=== PATIENT | female | born 1950 | race Caucasian/White ===

== ENCOUNTER → 2020-09-29 15:14 | Outpatient (BNVA) | payer MEDICARE, SELFPAY | PROVIDERS: PCP Family Medicine; Visit Provider Internal Medicine | DX: E03.9 Hypothyroidism, unspecified (principal); E83.52 Hypercalcemia; G47.33 Obstructive sleep apnea (adult) (pediatric); G62.9 Polyneuropathy, unspecified | CPT/HCPCS: 99204 ==

== ENCOUNTER → 2020-10-21 09:00 | Outpatient (BNVA) | payer MEDICARE, SELFPAY | PROVIDERS: PCP Family Medicine; Visit Provider Internal Medicine | DX: E03.9 Hypothyroidism, unspecified (principal); E83.52 Hypercalcemia; G62.9 Polyneuropathy, unspecified | CPT/HCPCS: 82310; 83036; 83970; 84439; 84443 ==

== ENCOUNTER → 2021-07-18 16:09 | Outpatient (BNVA) | payer MEDICARE, SELFPAY | PROVIDERS: PCP Family Medicine; Visit Provider Obstetrics & Gynecology | DX: N95.0 Postmenopausal bleeding (principal) | CPT/HCPCS: 88305; 88341; 88342; 88360 ==

== ENCOUNTER → 2021-07-19 11:25 | Outpatient (BNVA) | payer MEDICARE, SELFPAY | PROVIDERS: PCP Family Medicine; Visit Provider Obstetrics & Gynecology | DX: N95.0 Postmenopausal bleeding (principal); N85.2 Hypertrophy of uterus | CPT/HCPCS: 76830; 76857 ==

== ENCOUNTER 2021-10-05 06:00 | Outpatient (RCR) | payer MEDICARE, SELFPAY | END 2021-10-24 23:59 | disposition home or self-care (01) | LOC: GPT 06:00 | PROVIDERS: PCP Family Medicine; Referring Provider Family Medicine; Visit Provider Family Medicine | DX: R26.81 Unsteadiness on feet (principal) | CPT/HCPCS: 97110; 97112; 97162; 97530 ==

== ENCOUNTER 2022-07-07 12:07 | Outpatient (CLI) | payer MEDICARE, SELFPAY ==
--- NOTE | 2022-07-07 12:17 | MM_ITS ---
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 Findings: The breast parenchymal pattern shows fibroglandular tissue. No spiculated masses or clustered calcifi cations are seen. There are no secondary signs of carcinoma. Mole markers are on both breasts. MM/[place] [id number] Impression: 1. Negative bilateral mammogram with no prior exam for review.. 2. Recommend annual screening mammograms. BIRADS: 1-Negative FOLLOW UP: 1 Year Follow-up The CAD template checker was used.
== END 2022-07-07 12:08 | disposition home or self-care (01) ==
PROVIDERS: PCP Family Medicine; Visit Provider Obstetrics & Gynecology
DX: Z12.31 Encounter for screening mammogram for malignant neoplasm of breast (principal); C54.1 Malignant neoplasm of endometrium
CPT/HCPCS: 77063; 77067

== ENCOUNTER 2022-10-24 06:00 | Outpatient (RCR) | payer MEDICARE, SELFPAY | END 2022-10-27 23:59 | disposition home or self-care (01) | LOC: GPT 06:00 | PROVIDERS: PCP Family Medicine; Visit Provider Student in an Organized Health Care Education/Training Program | DX: M17.11 Unilateral primary osteoarthritis, right knee (principal) | CPT/HCPCS: 97110; 97140; 97161; 97535 ==

== ENCOUNTER 2022-12-13 13:48 | Outpatient (CLI) | payer MEDICARE, SELFPAY ==
--- NOTE | 2022-12-13 14:07 | CT_ITS ---
WS: [id number] CT CHEST, ABDOMEN AND PELVIS WITH AND WITHOUT CONTRAST. HISTORY: MALIGNANT NEOPLASM OF BODY OF UTERUS TECHNIQUE: Noncontrast imaging first performed through the abdomen and pelvis. Contiguous 5 mm axial imaging performed through the chest, abdomen and pelvis with IV contrast, oral contrast has been prov ided. Coronal and sagittal reformats chest. Coronal and sagittal reformats through the abdomen and pe lvis. All CT scans at [facility] use at least one of these dose optimization techniques: auto mated exposure control; mA and/or kV adjustment per patient size (includes targeted exams where dose is matched to clinical indication); or iterative reconstruction. CONTRAST: Omnipaque 350; 100 mL IV. DLP: 1827.82 mGy.cm COMPARISON: None available. Chest CT: Lungs are well-aerated. Noncalcified 3 mm nodule LEFT upper lobe. Noncalcified 4.6 mm nodul e LEFT lower lobe. No mass. No endobronchial lesions. No pneumonia. Right-sided central line with tip in distal SVC. No mediastinal or hilar adenopathy. No axillary lymph nodes. Mild atherosclerosis aor ta. Normal size heart. Small hiatal hernia. Abdomen CT: Normal liver, spleen, gallbladder, pancreas, adrenal glands and kidneys. No renal obstruc tion. Mild atherosclerosis aorta. Mesenteric arteries are normally enhancing. There is a small amount of plaque at the origin of celiac axis and SMA. Normal appearance of the stomach and small bowel. Prior appendectomy. There are numerous scattered di verticula throughout the descending and sigmoid colon. No acute diverticulitis. No ascites or adenopathy. No mesenteric implants are identified. Pelvic CT: Normally distended urinary bladder. Prior hysterectomy. No free fluid or lymph nodes in th e pelvis. L5 grade 2 anterolisthesis. L5 anterolisthesis by 12.6 cm. Bilateral pars defects at L5. No osteoblas tic or osteolytic bone disease is identified. CT/CT ch abdpel wo/w [id number] IMPRESSION: 1. Patient is status post hysterectomy and appendectomy. 2. Noncalcified LEFT pulmonary nodules, 3 mm LEFT upper lobe and 4.6 mm LEFT l ower lobe. Differential includes postinflammatory benign nodules versus early m etastatic nodules. Recommend follow-up chest CT in [address] fo llow-up will be necessary to document stability. 3. No ascites or metastatic lymphadenopathy within the chest, abdomen or pelvi s. 4. Grade 2 L5 spondylolisthesis, bilateral L5 pars defects. 5. Distal colon moderate diverticulosis without acute diverticulitis.
[2022-12-13] MEDS: iohexol 350 mg/mL 500 mL Btl (per mL) PO (15:50)
[2022-12-13 15:57] LABS: Blood Urea Nitrogen 14 mg/dL (8-23)
[2022-12-13] MEDS: iohexol 350 mg/mL 500 mL Btl (per mL) IV (16:08)
== END 2022-12-13 13:49 | disposition home or self-care (01) ==
PROVIDERS: Radiology Diagnostic Radiology; PCP Family Medicine
DX: C55 Malignant neoplasm of uterus, part unspecified (principal); Z90.710 Acquired absence of both cervix and uterus; R91.8 Other nonspecific abnormal finding of lung field; M43.16 Spondylolisthesis, lumbar region; K57.30 Diverticulosis of large intestine without perforation or abscess without bleeding
CPT/HCPCS: 71260; 74178; 82565; 84520; Q9967

== ENCOUNTER 2023-02-15 06:00 | Outpatient (RCR) | payer MEDICARE, SELFPAY | END 2023-02-26 23:59 | disposition home or self-care (01) | LOC: GPT 06:00 | PROVIDERS: Visit Provider Student in an Organized Health Care Education/Training Program | DX: Z47.1 Aftercare following joint replacement surgery (principal); Z96.652 Presence of left artificial knee joint | CPT/HCPCS: 97161 ==

== ENCOUNTER → 2023-04-09 16:36 | Outpatient (BNVA) | payer MEDICARE, SELFPAY | PROVIDERS: Visit Provider Nurse Practitioner Women's Health | DX: Z12.4 Encounter for screening for malignant neoplasm of cervix (principal) | CPT/HCPCS: 87624 ==

== ENCOUNTER 2023-04-26 09:31 | Outpatient (CLI) | payer MEDICARE, SELFPAY ==
--- NOTE | 2023-04-26 09:39 | CT_ITS ---
WS: [id number] CT CHEST, ABDOMEN AND PELVIS WITH AND WITHOUT CONTRAST. HISTORY: UTERINE/CERVICAL CANCER/MONITOR ENDOMETRIAL CANCER TECHNIQUE: Contiguous 5 mm axial imaging performed through the chest, abdomen and pelvis with and wit hout IV contrast, oral contrast has been provided. Coronal and sagittal reformats chest. Coronal and sagittal reformats through the abdomen and pelvis. All CT scans at [facility] use at least on e of these dose optimization techniques: automated exposure control; mA and/or kV adjustment per kathrin ent size (includes targeted exams where dose is matched to clinical indication); or iterative reconst ruction. CONTRAST: Omnipaque 350; 100 mL IV. DLP: 2397.60 mGy.cm COMPARISON: 12/13/[address]: No new or enlarging pulmonary nodules. Reidentified is 3 mm nodule in the LEFT upper lobe. The previously described LEFT lower lobe nodule is not identified. No mass or pneumonia. No pleural e ffusions. Mild atherosclerosis aorta. Normal sized pulmonary artery. No mediastinal or hilar adenopat hy. Normal size heart. Small hiatal hernia. Abdomen CT: Hepatic steatosis. Normal portal vein. No metastatic lesions within the liver. Normal gal lbladder. Normal pancreas and spleen. Normal adrenal glands. No renal obstruction. Mild atheroscleros is aorta. No ascites or adenopathy. Nondistended stomach contains a small amount of oral contrast. No GI tract obstruction. Numerous dive rticula in the descending and sigmoid colon. No evidence for acute diverticulitis. Pelvic CT: No free fluid. Negative urinary bladder. No pelvic adenopathy. L5 anterolisthesis by 14 mm. No osteoblastic or osteolytic bone disease. IMPRESSION: 1. No lymphadenopathy within the chest, abdomen or pelvis. 2. Previously described LEFT lower lobe pulmonary nodule is no longer present. Stable 3 mm nodule in the LEFT upper lobe. No new pulmonary nodule or mass. 3. No ascites or omental carcinomatosis. 4. Grade 2 anterolisthesis of L5. 5. Prior hysterectomy and appendectomy.
[2023-04-26] MEDS: iohexol 350 mg/mL 500 mL Btl (per mL) PO (10:04)
[2023-04-26] MEDS: iohexol 350 mg/mL 500 mL Btl (per mL) IV (10:04)
[2023-04-26 10:09] LABS: Basophils % 0.4 %; Eosinophils # 0.1 10^3/uL (0.0-0.8); Eosinophils % 2.2 %; Hematocrit 37.9 % (36-47); Lymphocytes # 1.4 10^3/uL (0.8-4.8); Lymphocytes % 30.8 %; Mean Corpuscular HGB Conc 32.7 g/dL (30-55); Mean Corpuscular Volume 97.9 fl (85-98); Mean Platelet Volume 9.6 fL (7.4-10.4); Monocytes # 0.4 10^3/uL (0.2-0.9); Monocytes % 9.5 %; Neutrophils # 2.64 10^3/uL (1.8-7.7); Neutrophils % 56.9 %; Nucleated Red Blood Cells % 0 %; Platelet Count 248 10^3/cmm (157-399); Red Blood Count 3.87 10^6/uL (3.85-5.65); Red Cell Distribution Width 13.9 % (12.1-15.1); White Blood Count 4.64 10^3/uL (3.29-11.43)
[2023-04-26 11:18] LABS: Blood Urea Nitrogen 17 mg/dL (8-23)
== END 2023-04-26 09:32 | disposition home or self-care (01) ==
PROVIDERS: PCP Family Medicine; Visit Provider Physician Assistant Medical
DX: C54.9 Malignant neoplasm of corpus uteri, unspecified (principal); C54.1 Malignant neoplasm of endometrium; Z90.710 Acquired absence of both cervix and uterus; Z90.49 Acquired absence of other specified parts of digestive tract
CPT/HCPCS: 36415; 71260; 74178; 82565; 84520; 85025; Q9967

== ENCOUNTER 2023-07-18 11:45 | Outpatient (CLI) | payer MEDICARE, SELFPAY ==
--- NOTE | 2023-07-18 | MM_ITS ---
WS: [id number] BILATERAL 3D TOMOSYNTHESIS DIGITAL SCREENING MAMMOGRAPHY WITH CAD CLINICAL INFORMATION: SCR HISTORY: Screening mammogram. No current complaints. COMPARISON: 2021 TECHNIQUE: Bilateral CC and MLO views. FINDINGS: Scattered fibroglandular densities bilaterally. No suspicious focal mass, asymmetry, calcifications, or architectural distortion. No evidence of malignancy. A few incidental tiny punctate calcifications . IMPRESSION: MM/[place] [id number] BI-RADS: 2-Benign FOLLOW UP: 1 Year Follow-up Recommend return to annual screening mammography.
== END 2023-07-18 11:46 | disposition home or self-care (01) ==
LOC: RAD 11:46
PROVIDERS: PCP Family Medicine; Visit Provider Family Medicine
DX: Z12.31 Encounter for screening mammogram for malignant neoplasm of breast (principal)
CPT/HCPCS: 77063; 77067

== ENCOUNTER 2024-01-01 09:15 | Outpatient (CLI) | payer MEDICARE, SELFPAY ==
--- NOTE | 2024-01-01 09:30 | MM_ITS ---
WS: [id number] DIAGNOSTIC BILATERAL DIGITAL BREAST TOMOSYNTHESIS MAMMOGRAPHY WITH CAD Bilateral breast ultrasound, limited HISTORY: N64.4 - Mastodynia, bilateral palpable areas. COMPARISON: 07/18/2023, 07/07/2022 TECHNIQUE: Bilateral craniocaudad, mediolateral oblique, and mediolateral views are submitted with to mosynthesis and SM. Spot compression RIGHT CC and MLO. Computer aided detection utilized. Breast composition: There are scattered areas of fibroglandular density. No suspicious masses or calc ifications. There is a small lymph node measuring 5 mm in the upper outer quadrant of the LEFT breast closely associated with the palpable marker. No mass associated with the palpable marker in the medi al RIGHT breast. Bilateral breast ultrasound, limited. There is a benign appearing lymph node associated with the palpable abnormality in the LEFT breast. N o abnormality associated with the palpable site in the RIGHT breast. MM/[place] [id number] IMPRESSION: BI-RADS: 2-Benign FOLLOW UP: 1 Year Follow-up
--- NOTE | 2024-01-01 10:00 | US_ITS ---
WS: [id number] DIAGNOSTIC BILATERAL DIGITAL BREAST TOMOSYNTHESIS MAMMOGRAPHY WITH CAD Bilateral breast ultrasound, limited HISTORY: N64.4 - Mastodynia, bilateral palpable areas. COMPARISON: 07/18/2023, 07/07/2022 TECHNIQUE: Bilateral craniocaudad, mediolateral oblique, and mediolateral views are submitted with to mosynthesis and SM. Spot compression RIGHT CC and MLO. Computer aided detection utilized. Breast composition: There are scattered areas of fibroglandular density. No suspicious masses or calc ifications. There is a small lymph node measuring 5 mm in the upper outer quadrant of the LEFT breast closely associated with the palpable marker. No mass associated with the palpable marker in the medi al RIGHT breast. Bilateral breast ultrasound, limited. There is a benign appearing lymph node associated with the palpable abnormality in the LEFT breast. N o abnormality associated with the palpable site in the RIGHT breast. US/US breast BI limited* [id number] IMPRESSION: BI-RADS: 2-Benign FOLLOW UP: 1 Year Follow-up
== END 2024-01-01 09:16 | disposition home or self-care (01) ==
LOC: RAD 09:16
PROVIDERS: PCP Family Medicine; Visit Provider Nurse Practitioner Women's Health
DX: N64.4 Mastodynia (principal); Z12.31 Encounter for screening mammogram for malignant neoplasm of breast; R92.323 Mammographic fibroglandular density, bilateral breasts; N63.21 Unspecified lump in the left breast, upper outer quadrant
CPT/HCPCS: 76642; 77062; G0279

== ENCOUNTER → 2024-03-18 16:36 | Outpatient (BNVA) | payer MEDICARE, SELFPAY | PROVIDERS: PCP Family Medicine; Visit Provider Nurse Practitioner Family | DX: R50.9 Fever, unspecified (principal); R11.2 Nausea with vomiting, unspecified | CPT/HCPCS: 87071; 87400; 87426; 87880 ==

== ENCOUNTER → 2024-04-04 09:00 | Outpatient (BNVA) | payer MEDICARE, SELFPAY | PROVIDERS: PCP Family Medicine; Visit Provider Nurse Practitioner Family | DX: Z91.018 Allergy to other foods (principal); E03.9 Hypothyroidism, unspecified; R42 Dizziness and giddiness; R53.83 Other fatigue | CPT/HCPCS: 80053; 84443; 85025; 86003; 86008 ==

== ENCOUNTER → 2024-07-03 14:46 | Outpatient (BNVA) | payer MEDICARE, SELFPAY | PROVIDERS: PCP Family Medicine; Visit Provider Internal Medicine Cardiovascular Disease | DX: I45.10 Unspecified right bundle-branch block (principal); R94.31 Abnormal electrocardiogram [ECG] [EKG]; E03.9 Hypothyroidism, unspecified; Z86.73 Personal history of transient ischemic attack (TIA), and cerebral infarction without residual deficits | CPT/HCPCS: 99204 ==

== ENCOUNTER 2024-08-04 07:25 | Outpatient (CLI) | payer MEDICARE, SELFPAY ==
--- NOTE | 2024-08-04 | ECG_ITS ---
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 Interpretive Statements Lung unchanged pre/post procedure; Intraprocedure shortess of breath; Symptoms resoled by discharge PROCEDURE: At the baseline, the EKG revealed sinus rhythm with a right bundle branch block pattern. The baseline heart was 70 bpm with a blood pressue of 169/90 mm of Hg Lexiscan was infused over a period of 20 seconds. A total of 0.4 milligrams of Lexiscan was infused. The stress phase was continued for a total of 5 minutes. Heart rate at the end of the stress phase was 87 bpm with a blood pressure 160/90 mm of Hg. The EKG at the peak infusion revealed no significant changes. There were occasional PVCs on the monitor with the infusion. Sestamibi was injected 20 seconds after the Lexiscan infusion. Heart rate at the end of the recovery phase was 84 bpm with a blood pressure of 161/85 mm of Hg. CONCLUSION: 1. No significant EKG changes with the LexiScan infusion 2. No LexiScan induced chest pain or cardiac arrhythmia 3. Normal blood pressure and heart rate response 4. Sestamibi/sestamibi perfusion scan pending; see separate report. Electronically Signed On 08-04-2024 17:59:49 [employer] RESEARCHER by Landon Resendiz M.D. [email or web address]
[2024-08-04 07:29] VITALS: BMI 40.6
--- NOTE | 2024-08-04 07:35 | NMCV_ITS ---
NM mu perf SPECT r/s* [id number] Eda Valdez Age: 74 Gender: F : 1950 Exam Date: 08/04/2024 08:45 Ordering Phys: Landon Resendiz MD ([email or web address]) Technologist: CLYDE Silva Exam Location: [facility] Indications: cp STRESS TEST [facility] IMAGE PROTOCOL Rest/Stress 1 Lexiscan Day Radiopharmaceutical Dose (mCi) Administration Site Administered by Rest: Tc-99m 10.6 IV CLYDE Silva Sestamibi Stress:Tc-99m 32.9 IV CLYDE Phan Sestamibi Rest: 04-Aug-2024 60 Discovery 630 Stress: 04-Aug-2024 30 Discovery 630 0.4mg Lexiscan. Images obtained in supine and prone position. SPECT RESULTS Technical Quality: Good Raw Data Analysis: Normal Image Corrections: No attenuation or motion correction applied Summed Stress Score: 6 Summed Rest Score: 7 Summed Difference Score: 0 PERFUSION FINDINGS Moderate area of minimal to moderately decreased tracer uptake was noted involving the mid inferolateral, apical lateral, mid anterolateral and apical anterior regions. No significant reversibility was noted in these regions. FUNCTIONAL RESULTS (calculated via Gated SPECT) Stress Image LV EF (%): 74 Stress EDV (mL):105 TID: 1.02 Stress ESV (mL):27 FUNCTIONAL FINDINGS: Segmental wall motion analysis revealing no gross wall motion abnormalities IMPRESSIONS 1. Myocardial perfusion imaging revealing moderate area of minimal to moderately decreased persistent tracer uptake involving the inferolateral, anterolateral and apical regions suggesting myocardial scarring versus attenuation artifact. 2. Normal LV ejection fraction of 74%. 3. LV wall motion analysis revealing no gross wall motion abnormalities. 4. Normal LV volume Low probability for coronary ischemia, based on the above findings Dr Landon Resendiz MD FAC (Electronically Signed) Final Date: 05 August 2024 20:29 S
[2024-08-04] MEDS: regadenoson 0.4 Mg/5 ml Syringe IVP (09:16)
[2024-08-04 09:43] VITALS: BP 160/89; PULSE 86
== END 2024-08-04 07:26 | disposition home or self-care (01) ==
PROVIDERS: PCP Family Medicine; Visit Provider Internal Medicine Cardiovascular Disease
DX: R07.9 Chest pain, unspecified (principal); R93.1 Abnormal findings on diagnostic imaging of heart and coronary circulation
CPT/HCPCS: 36415; 78452; 93017; 96374; A9500; J2785

== ENCOUNTER → 2024-10-21 08:32 | Outpatient (BNVA) | payer MEDICARE, SELFPAY | PROVIDERS: PCP Nurse Practitioner Family; Visit Provider Nurse Practitioner Family | DX: I45.10 Unspecified right bundle-branch block (principal); R94.31 Abnormal electrocardiogram [ECG] [EKG]; E03.9 Hypothyroidism, unspecified; Z86.73 Personal history of transient ischemic attack (TIA), and cerebral infarction without residual deficits | CPT/HCPCS: 99213 ==

== ENCOUNTER → 2025-02-10 09:24 | Outpatient (BNVA) | payer MEDICARE, SELFPAY | PROVIDERS: PCP Nurse Practitioner Family; Visit Provider Family Medicine | DX: E03.9 Hypothyroidism, unspecified (principal); Z91.018 Allergy to other foods; G62.9 Polyneuropathy, unspecified; R53.83 Other fatigue | CPT/HCPCS: 80053; 80061; 84439; 84443; 85025 ==

== ENCOUNTER → 2025-03-05 09:47 | Outpatient (BNVA) | payer MEDICARE, SELFPAY | PROVIDERS: PCP Nurse Practitioner Family; Visit Provider Podiatrist Foot & Ankle Surgery | DX: L60.8 Other nail disorders (principal); L60.3 Nail dystrophy | CPT/HCPCS: 99203 ==

== ENCOUNTER 2025-03-26 10:53 | Emergency (ER) | payer MEDICARE, SELFPAY ==
--- NOTE | 2025-03-26 10:56 | XR_ITS ---
WS: [id number] Exam: XR chest 1V portable [id number] Date/Time of Exam: 03/26/2025 10:56 AM Reason For Exam: dyspnea/cough No priors. There is infiltrate in the LEFT lower lobe and also of the RIGHT upper lobe. Remaining lung tyler are clear no pneumothorax or pleural effusion. Normal heart size. The mediastinum is normal in contour. A RIGHT subclavian port ends at the cavoatrial junction. Bony structures are intact. XR/XR chest 1V portable [id number] IMPRESSION: 1. Infiltrates in the RIGHT upper lobe and LEFT lower lobe. This could represen t chronic change or pneumonia.
--- OUTSIDE RECORDS SUMMARY | 2025-03-26 11:01 | XMS_ITS | Encounter Summary ---
Author Organization [facility] Address [address] [place] [address] Care Team Providers Care Orthoptist Name Role Phone Satinder Maxwell MD Primary Care Provider [phone] Encounter Details Date Type Department Care Team (Late st Contact Info) Description 12/27/2006 Outpatient [facility] Internal Medicine [address] [address] Satinder Maxwell MD [address] [facility] [address] [place] [phone] Social History Tobacco Use Types Packs/Day Years Used Date Smoking Tobacco: Never Assessed Comments Unknown Sex and Gender Information Value Date Recorded Sex Assigned at Not on file 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
--- OUTSIDE RECORDS SUMMARY | 2025-03-26 11:01 | XMS_ITS | Encounter Summary ---
Author Organization [employer] Address [address] [place] [address] Care Team Providers Care Technical Sales Engineer Name Role Phone Satinder Maxwell MD Primary Care Provider [phone] Encounter Details Date Type Department Care Team (Latest Contact Info) Description 01/01/2007 Outpatient Historical [facility] Satinder Maxwell MD [address] [place] [phone] Abn Find-Musculoskel Sys (Primary Dx) Social History Tobacco Use Types Packs/Day Years Used Date Smoking Tobacco: Never Assessed Comments Unknown Sex and Gender Information Value Date Recorded Sex Assigned at Not on file 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 Gender Identity Not on file Sexual Orientation Not on file documented as of this encounter Plan of Treatment Not on file documented as of this encounter Procedures Procedure Name Priority Date/Time Associated Diagnosis Comments POC CREATININE Routine 01/01/2007 3:30 PM CDT documented in this encounter Results * POC CREATININE (01/01/2007 3:30 PM CDT) CREATININE POC 0.9 0.6 - 1.3 mg/dL INTERFACE SYSTEM 01/01/2007 3:30 PM CDT Satidner Maxwell MD POINT OF CARE TESTING Edited INTERFACE SYSTEM Refer to clinic/hospital department documented in this encounter Visit Diagnoses Diagnosis Nonspecific (abnormal) findings on radiological and other examination of musculoskeletal system- Primary documented in this encounter Care Teams Technical Sales Engineer Relationship Specialty Start Date End Date Satinder Maxwell MD [address] [place] [phone] PCP - General 01/01/07 06/06/17 documented as of this encounter
--- OUTSIDE RECORDS SUMMARY | 2025-03-26 11:02 | XMS_ITS | Encounter Summary ---
Author Organization [facility] Address [address] [place] [address] Care Team Providers Care Cork Insulation Setter Name Role Phone Satinder Maxwell MD Primary Care Provider [phone] Encounter Details Date Type Department Care Team (Late st Contact Info) Description 12/27/[address] 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
--- OUTSIDE RECORDS SUMMARY | 2025-03-26 11:02 | XMS_ITS | Clinical Summary ---
Author Organization [facility] Address [address] [place] [address] Care Team Providers Care Check Clerk Name Role Phone Unavailable Primary Care Provider Unavailabl e Allergies Active Allergy Reactions Criticality Noted Date Comments Codeine Nausea and Vomiting Low 04/29/2009 Paclitaxel Other (See Comments),Rash Medium 11/21/2021 Penicillins 12/27/2006 Medications levothyroxine 125 mcg tablet Take 125 mcg by mouth daily. 3 Active polyethylene glycol 3350 (Miralax) 17 gram/dose Powder Take 1 Scoop (17 Grams) by mouth daily. Dissolve in 8 ounces of fluid and drink entire liquid 510 Gram 02/09/2023 9:42 AM CDT 3 Active apixaban (ELIQUIS ORAL) Take by mouth. Active clindamycin HCL (CLEOCIN) 300 mg Capsule TAKE TWO CAPSULES BY MOUTH ONE HOUR PRIOR TO DENTAL PROCEDURE 2 Capsule 1 5 Active Active Problems Problem Noted Date Diagnosed Date Status post total left knee replacement 02/09/20 23 Status post total right knee replacement 023 Preoperative general physical examination 2022 History of endometrial cancer 09/25/2022 History of cerebral infarction 09/25/2022 Dyslipidemia 09/25/2022 Postablative hypothyroidism 09/25/2022 Leukocytopenia 09/25/2022 Anemia 09/25/2022 Elevated blood pressure read ing without diagnosis of hypertension 12/27/2006 Severe obesity (BMI 35.0-39.9) with comorbidity 12/27/2006 Depressive disorder, not elsewhere classified Need for prophylactic vaccin ation with tetanus-diphtheria (Td) 12/27/2006 Resolved Problems Problem Noted Date Diagnosed Date Resolved Date Primary osteoarthritis of left knee 01/19/2023 03/15/2023 Primary osteoarthritis of right knee 09/25/2022 11/20/2022 Acute sinusitis, unspecified 12/27/2006 09/25/2022 Encounters Date Type Department Care Team Description 02/11/2025 External Device Data [facility] ABSTRACTION Provider, Abstract 02/10/2025 External Device Data [facility] ABSTRACTION Provider, Abstract 01/20/2025 External Device Data [facility] ABSTRACTION Provider, Abstract 01/13/2025 External Device Data [facility] ABSTRACTION Provider, Abstract from Last 3 Months Immunizations Immunization Administration Dates Next Due (ADACEL/BOOSTRIX)(10 YR UP) TDAP VACCINE, 0.5ML, IM 12/27/2006 Family History Medical History Relation Name Comments Cancer Father Brain CA at 56 Heart Disease Sister 2 NH and passed at 56 yo Other Sister 2 ETOH Abuse Relation Name Status Comments Brother Alive Father Mother Sister 1 Alive Sister 2 Social History Tobacco Use Types Packs/Day Years Used Date Smoking Tobacco: Never Smokeless Tobacco: Never Tobacco Cessation:Counseling Given: Not Answered Alcohol Use Standard Drinks/Week Comments Yes 0 (1 standard drink = 0.6 oz pur e alcohol) rarely Feeling Safe Answer Date Recorded Are you in a relationship wi th someone who hurts you emotionally and/or physically? 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 Gender Identity Not on file Sexual Orientation Not on file Last Filed Vital Signs Vital Sign Reading Time Taken Comments Blood Pressure 138/82 03/15/2023 11:25 AM CDT Pulse 72 02/09/2023 2:26 PM CDT Temperature 36.7 C (98 F) 02/09/2023 2:26 PM CDT Respiratory Rate 16 02/09/2023 2:26 PM CDT Oxygen Saturation 97% 02/09/2023 2:26 PM CDT Inhaled Oxygen Concentration - - Weight 104.1 kg (229 lb 9.6 oz) 023 11:11 AM CDT Height 162.6 cm (5' 4 ) 03/15/2023 11:1 1 AM CDT Body Mass Index 39.41 03/15/2023 11:11 AM CDT Plan of Treatment Health Maintenance Due Date Last Done Comments BREAST CANCER SCREENING 1991 COLORECTAL SCREENING 01/22/1996 Colorectal Cancer Screening 01/22/1996 FIT-DNA Q 3 years 01/22/1996 FIT/FOBT Q 1 year 01/22/1996 Flex Sig/CT Colonography Q 5 years 01/22/1996 ZOSTER VACCINE (1 of 2) 2001 RSV VACCINE (60+ or ) (1 - Risk 60-74 years 1-dose series) 2011 OSTEOPOROSIS SCREENING 01/22/2016 DTAP/TDAP/TD VACCINES (2 - Td or Tdap) 12/27/2016 PNEUMOCOCCAL VACCINE 50+ YEA RS (2 of 2 - PCV20 or PCV21) 08/01/2019 08/01/2018 COVID-19 Vaccine (2 - season) 03/30/202403/2021 INFLUENZA VACCINE (#1) 2025 07/24/2018 Medical Devices Implanted Type Area Brick Yard Hand Device Identifier Shelf Expiration Date Model / Serial / Lot Baseplate Tib Attune Fxd Bearing Sz5 1506-21-005 - [id number] Implanted:Qty: 1 on 02/08/2023 by José Dave MD at [facility] Knee Left: Knee [employer] 12/27/2032 1506-21-005 / / [id number] Tibial Base Fixed Bearing Sz5 Implanted:Qty: 1 on 10/20/2022 by José Dave MD at [facility] Right: Knee 06/28/2032 [id number] 1-005 / / [id number] Right 5mm Tibial Insert Ms Implanted:Qty: 1 on 10/20/2022 by José Dave MD at [facility] Right: Knee 08/29/2030 [id number] 0-505 / / [id number] Comp Fem Attune Rt Robert Sz5 Implanted:Qty: 1 on 10/20/2022 by José Dave MD at [facility] Right: Knee [id number] 08/29/2032 [id number] / / [id number] Tibial Insert Fixed Bearing 7mm Implanted:Qty: 1 on 02/08/2023 by José Dave MD at [facility] Left: Knee 09/26/2030 [id number] 0-507 / / [id number] Fem Pcr 5n Left Implanted:Qty: 1 on 02/08/2023 by José Dave MD at [facility] Left: Knee 08/29/2031 [id number] / / [id number] Insurance [facility] [id number]
--- OUTSIDE RECORDS SUMMARY | 2025-03-26 11:02 | XMS_ITS | Patient Health Record ---
Author Organization [facility] Address [address] [place] [phone] Support Name Relationship Address Phone YOVANA POWELL Guarantor Unknown [phone] Reason For Referral No Information Plan Of Treatment No Information
--- OUTSIDE RECORDS SUMMARY | 2025-03-26 11:02 | XMS_ITS | Clinical Summary ---
Author Organization [facility] Address [address] [place] [address] Care Team Providers Care Market Developer Name Role Phone Unavailable Primary Care Provider Unavailabl e Medications escitalopram oxalate (LEXAPRO) 20 mg tablet Take 20 mg by mouth. 10/14/2019 Active levothyroxine 100 mcg tablet Take 1.5 tablets (150 mcg) Sunday and Sunday, take 1 tablet (100 mcg) all other days. 10/14/2019 Active triamcinolone acetonide (KENALOG) 0.1 % Cream Apply to affected area. 02/28/2018 Active meloxicam (MOBIC) 15 mg tablet Take 1 Tablet (15 mg) by mouth daily. 30 Tablet 3 01/06/2021 Active Active Problems Problem Noted Date Diagnosed Date Primary osteoarthritis of both knees 01/06/2021 Obesity 01/06/2021 Graves disease 01/06/2021 Social History Tobacco Use Types Packs/Day Years Used Date Smoking Tobacco: Never Smokeless Tobacco: Never Comments Unknown Sex and Gender Information Value Date Recorded Sex Assigned at Not on file Legal Sex Female 12:44 PM CDT Gender Identity Not on file Sexual Orientation Not on file Last Filed Vital Signs Vital Sign Reading Time Taken Comments Blood Pressure 144/82 01/06/2021 10:30 AM CDT Pulse 77 01/06/2021 10:30 AM CDT Temperature - - Respiratory Rate - - Oxygen Saturation - - Inhaled Oxygen Concentration - - Weight 126.1 kg (278 lb) 01/06/2021 10:30 AM CDT Height 170.2 cm (5' 7 ) 01/06/2021 10:30 AM CDT Body Mass Index 43.54 01/06/2021 10:30 AM CDT Plan of Treatment Health Maintenance Due Date Last Done Comments BREAST CANCER SCREENING 1991 COLORECTAL SCREENING 01/22/1996 Colorectal Cancer Screening 01/22/1996 FIT-DNA Q 3 years 01/22/1996 FIT/FOBT Q 1 year 01/22/1996 Flex Sig/CT Colonography Q 5 years 01/22/1996 PNEUMOCOCCAL VACCINE 50+ YEARS (1 of 1 - PCV) 01/22/20 ZOSTER VACCINE (1 of 2) 2001 RSV VACCINE (60+ or ) (1 - Risk 60-74 years 1-dose series) 2011 OSTEOPOROSIS SCREENING 01/22/2016 DTAP/TDAP/TD VACCINES (2 - Td or Tdap) 12/27/2016 INFLUENZA VACCINE (#1) 2025 Insurance [id number] [id number] [facility] DUAL COMPLETE [place] [address]
--- OUTSIDE RECORDS SUMMARY | 2025-03-26 11:02 | XMS_ITS | Encounter Summary ---
Author Organization [facility] Address 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 [address] D.O.B: 1950 SSN: [id number] Parent/Guardian if applicable: Patient Insurance: [employer] ID#: [id number] Group#: ORDER(S) #: [id number] chest xray PLEASE SCHEDULE THE APPOINTMENT AT THE FOLLOWING LOCATION: [facility] SPECIAL SCHEDULING INSTRUCTIONS: ORDERING PHYSICIAN: GUERO LANDAVERDE MD OFFICE INTAKE CLERK & PHONE: Susannah Rodarte E * Guero Landaverde MD - 12/19/2007 12:58 PM CDT SPECIALIST REFERRAL REQUEST DATE: DECEMBER 27, 2006 Note created by: Florina Wong C 02:26 p Patient Name : YOVANA VALDEZ Address: [address] [place] [address] [place] [address] D.O.B: 1950 SSN: [id number] Parent/Guardian if applicable: Patient Insurance: [employer] Policy#: [id number] Group #: Best To Call : [phone] Best Time to Call : ANYTIME. May We Leave Message At That Number : YES, LEAVE MESSAGE. Referring to: GASTROENTEROLOGY [facility] ph: [phone] fax: [phone]. Reason for referral: SCREENING COLONOSCOPY PATIENT DIAGNOSIS: . ORDERING PHYSICIAN : GUERO LANDAVERDE MD PRIORITY OF REFERRAL: AT PATIENT'S CONVENIENCE. OFFICE INTAKE CLERK & PHONE: Florina Wong C FOR SCHEDULING USE ONLY FIRST ATTEMPT Date:DEC 31, 2006 Lisandra Menon L 02:13 p Left message on Recorder. @ home. Tried cell # but voice mail box has not been set up yet. SECOND ATTEMPT: Date:JAN 15, 2007 Rabia Mercer 04:47 p Spoke with Patient.appt has not been pawel. Gave pt CRS # and she will contact tomorrow for miesha. LETTER SENT: Date JAN 16, 2007 Mariam Agrawal A 02:49 p Letter Sent to Patient. * Guero Landaverde MD - 12/19/2007 12:58 PM CDT CENTRAL TEST SCHEDULING DATE: DECEMBER 27, 2006 Note created by: Susannah Rodarte E 02:13 p Patient Name : YOVANA VALDEZ Address: [address] [place] [address] [place] [address] D.O.B: 1950 SSN: [id number] Parent/Guardian if applicable: Patient Insurance: [employer] PLAN ID#: [id number] Group#: ORDER(S) #: [id number] ct neck BEST TO CALL CELL. [phone] BEST TIME TO CALL: ANYTIME. MAY WE LEAVE MESSAGE AT THAT NUMBER: YES, LEAVE MESSAGE. PLEASE SCHEDULE THE APPOINTMENT AT THE FOLLOWING LOCATION: [facility]. TEST PRIORITY: 2 - 7 DAYS. SPECIAL SCHEDULING INSTRUCTIONS: pt needs prep ORDERING PHYSICIAN: GUERO LANDAVERDE MD OFFICE INTAKE CLERK & PHONE: Susannah Rodarte E ORDER PRINTED BY: Hattie Resendiz A FOR SCHEDULING USE ONLY: FIRST ATTEMPT Date:DEC 28, 2006 Hattie Resendiz A 11:23 a Left Message with FamilySusan GERONIMO. APPOINTMENT DATE : 01/01/2007 ( 16:00) The appointment was scheduled by Teresa Cantu A at [phone] Pre-authorization number: P-[id number] exp 01/27/07 Given/Authorized by: osmel Berg E @ ins FINAL ACTION Spoke with patient. * Guero Landaverde MD - 12/19/2007 12:58 PM CDT WEIGHT: 292lbs BLOOD PRESSURE: 140/100 Left Arm Sitting ( LARGE CUFF) HEIGHT: 5ft4in NURSE NAME: Perry Espinosa N CHIEF COMPLAINT Seen as a new patient to get established with the practice., Nodule on back of neckon left side HISTORY: sinus sore throat--z evonne from [facility]. Then on Cipro x 10 days. HISTORY: 784.2-SYMPTOMS INVOLVING HEAD AND NECK notes growth back of neck stable in size 2-3 weeks , not noted previously, no change with abx, zpak and cipro, hx of multiple tick bites, no other growths notedno adenopathy noted, lesion non tender, firm, mobile 461.9-SINUSITIS UNSPECIFIED has had x 2-3 weeks, some improvement with abxs, still with drainage, ear pain occ 796.2-BLOOD PRESSURE ELEVATED W/O DX OF HTN usuall ok no cardiac sx 278.00-OBESITY UNSPECIFIED wt gain recently states active 311-DEPRESSION stress with looking after mother, worse recently--has been tearful 780.57-SLEEP APNEA fatigue, snoring,noted to stop breathing, moderate, worse recently 715.90-OSTEOARTHROSIS UNSPECIFIED left ant knee pain on/off ROS: GENERAL: TIRES EASILY. ALLERGIC/IMMUNOLOGIC: No hay fever or history of environmental allergies. No chronic problems with immunity. EYES: No vision changes or diplopia. ENT: HAS EAR PAIN, NASAL CONGESTION PRESENT, no epistaxis, soreness of the tongue, dysphagia, or hoarseness. Trouble swallowing, hoarseness, sore throat ENDOCRINE: No heat or cold intolerance, no excessive thirst. CARDIAC: No chest pain, palpitations, orthopnea, dyspnea on exertion, or paroxysmal nocturnal dyspnea. RESPIRATORY: HAS A COUGH. SKIN/BREAST/CHEST: No rashes or non-healing lesions. No breast symptoms noted. HEMATOLOGIC/LYMPHATIC: . : No frequency, urgency, hematuria or dysuria. GI: No abdominal pain, nausea, vomiting, diarrhea, constipation, melena, or hematochezia. NEUROLOGIC: No weakness, dizziness, loss of consciousness, transient ischemic symptoms, or seizures. MUSCULOSKELETAL: NOTES JOINT PAIN. PSYCHIATRIC: HAS DEPRESSIVE SYMPTOMS, NOTES INCREASED STRESS, NOTES INCREASE IN TENSION. PAST MEDICAL HISTORY: MEDICAL: SURGICAL: Appendectomy. 1957 CURRENT MEDICATIONS: Cipro 500mg. bid., Z-pack od ALLERGIES/ADVERSE REACTIONS: Penicillins. Rash FAMILY HISTORY: FATHER: The father is . The cause of was brain cancer. MOTHER: The mother is living. Illnesses: Alzheimer's disease, osteoporosis. SIBLINGS: Three siblings. 2 suffer with anxiety/ depression,, 1 has thyroid disease SOCIAL HISTORY: MARITAL HISTORY: , living with spouse. LIVING WILL: TOBACCO USE: Has no significant smoking history. 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 CAFFEINE: A moderate amount of caffeinated beverages daily. EXERCISES: The patient is not exercising regularly. DIET: Follows no specific diet. SAFETY ISSUES: Uses seat belts. PHYSICAL EXAMINATION: post neck with 2-3 cm mass ,mobile non tender CONSTITUTIONAL: GENERAL APPEARANCE: Healthy appearing patient in no distress. EARS, NOSE, MOUTH AND THROAT: EARS: Tympanic membranes shiny without retraction. Canals unremarkable. Hearing grossly normal. NOSE (AND SINUS): No abnormality of the nose or sinuses is noted. ORAL: Inspection of gums, lips, palate, and teeth normal. No scars, lesions, or masses. Oral mucosaunremarkable with non-inflamed posterior pharynx. NECK/THYROID: Trachea midline. No thyroid enlargement, tenderness, or mass. No supraclavicular or cervical adenopathy. RESPIRATORY: Clear to auscultation and percussion. Normal respiratory effort. CARDIOVASCULAR: CARDIAC: Regular rhythm. No murmurs, rubs, or gallops. ARTERIAL: No aortic bruits. EDEMA/VARICOSITIES OF EXTREMITIES: No edema or varicosities. LYMPHATICS: The remaining lymphatic exam is unremarkable, no axillary lymphadenopathy. GASTROINTESTINAL: ABDOMEN: Soft, non-tender, without masses. Bowel sounds active. LIVER/SPLEEN/KIDNEY: No hepatosplenomegaly, tenderness or nodularity. Kidneys not palpable. MUSCULOSKELETAL EXAM: ant knee tender SKIN: SKIN: Warm, dry, no diaphoresis, no significant lesions, irritation, rashes or ulcers. No induration, obvious subcutaneous nodules or tightening. ASSESSMENT/PLAN: 796.2-BLOOD PRESSURE ELEVATED W/O DX OF HTN recheck , check lab--pt states normal in past 784.2-SYMPTOMS INVOLVING HEAD AND NECK cyst vs ln vs other --unclear, discussed, proceed with ct neck, explained to pt likely will need send to surgeon for excision LAB ORDERS: Order number: [id number] Test Ordered: CBC W/ DIFFERENTIAL 3150 Order number: [id number] Test Ordered: COMPREHENSIVE METABOLIC PANEL & GFR 1112 Order number: [id number] Test Ordered: LIPID PANEL 1078 Order number: [id number] Test Ordered: TSH 1720 Order number: [id number] Test Ordered: XRAY CHEST (2 VIEWS) Order number: [id number] Test Ordered: CT NECK SOFT TISSUE W/ CONTRAST Order number: [id number] Test Ordered: INJ-DTAP 11 YRS OR OLDER [address] 461.9-SINUSITIS UNSPECIFIED ongoing sx rerx ( tick bites) MEDICATIONS: DOXYCYCLINE HYCLATE ORAL TABLET 100 MG, 1 Two Times A Day, 20 Dispensed, 10 Duration/Days Supply, status: NEW PRESCRIPTION, 12/27/2006. NASONEX NASAL SUSPENSION 50 MCG/ACT, 2 Every Morning, 3 Dispensed, status: NEW PRESCRIPTION, 12/27/2006. 278.00-OBESITY UNSPECIFIED enc diet and exercise, discussed wt loss 311-DEPRESSION discussed, try med, reassess MEDICATIONS: WELLBUTRIN SR ORAL TABLET 12 HR 150 MG, 1 Two Times A Day, 60 Dispensed, 3 Fills, status: NEW PRESCRIPTION, 12/27/2006. 780.57-SLEEP APNEA discussed plan sleep study at fu 715.90-OSTEOARTHROSIS UNSPECIFIED advil prn, if not improving check x ray REPEAT VITAL SIGNS: BLOOD PRESSURE: 160/90. Right Arm Sitting SPECIALTY REFERRAL: GASTROENTEROLOGY [facility] ph: [phone] fax: [phone].colonoscopy HEALTH MAINTENANCE: LAST PAP DATE: 03/04negerts. LAST MAMMOGRAM DATE: 03/04neg. RETURN VISIT : Patient instructed to return in 6 weeks. Electronically Signed by: Guero Landaverde MD on , December 27, 2006 documented in this encounter Plan of Treatment Not on file documented as of this encounter Visit Diagnoses Not on filedocumented in this encounter Care Teams Compliance Clerk Relationship Specialty Start Date End Date Guero Landaverde MD [address] [place] [phone] PCP - General 01/01/07 06/06/17 documented as of this encounter
[2025-03-26 11:16] VITALS: BP 187/99; PULSE 64; RESP 17; TEMP 36.7; O2SAT 99; BMI 41.1
--- NOTE | 2025-03-26 11:26 | ECG_ITS ---
[facility] Date: 2025-03-26 Pat Name: Eda Valdez Department: Room: Gender: Female [place]: : 1950 Requested By: Samanta Oconnell Order Number: [id number] Canales MD: Brian Brizuela M.D. Measurements Intervals [place] Rate: 64 P: 41 NC: 211 QRS: 9 QRSD: 139 T: -6 QT: 407 QTc: 421 Interpretive Statements SINUS RHYTHM WITH FIRST DEGREE AV BLOCK RIGHT BUNDLE BRANCH BLOCK [120+ ms QRS DURATION, UPRIGHT V1, 40+ ms S IN I/aVL/V4/V5/V6] No previous ECG available for comparison Electronically Signed On 03-27-2025 22:42:46 CDT by Brian Brizuela M.D. [id number]
[2025-03-26 11:42] LABS: Hematocrit 40.4 % (36-47); Hemoglobin 13.00 g/dL (11.27-16.99); Mean Corpuscular HGB Conc 32.2 g/dL (30-55); Mean Corpuscular Hemoglobin 30.8 pg (27-33); Mean Corpuscular Volume 95.7 fl (85-98); Nucleated Red Blood Cells % 0 %; Platelet Count 250 10^3/cmm (157-399); Red Blood Count 4.22 10^6/uL (3.85-5.65); White Blood Count 5.35 10^3/uL (3.29-11.43)
[2025-03-26 12:00] LABS: Alanine Aminotransferase 17 U/L (0-33); Albumin Level 4.0 g/dL (3.5-5.2); Alkaline Phosphatase 144 U/L (35-105); Anion Gap 14.3 (5-19); Aspartate Amino Transferase 19 U/L (0-32); Blood Urea Nitrogen 18 mg/dL (8-23); Calcium 9.6 mg/dL (8.5-10.5); Carbon Dioxide 27 mmol/L (22-29); Chloride 105 mmol/L (98-107); Creatinine Clr Calc Pharmacy 59.5009; Globulin 3.7 g/dL (1.3-4.6); Glucose 107 mg/dL (65-115); Osmolality Calculated 296 mOsm/kg (285-295); Potassium 4.3 mmol/L (3.5-5.1); Sodium 142 mmol/L (136-145); Total Protein 7.7 g/dL (6.6-8.7)
--- NOTE | 2025-03-26 13:30 | W.ED.URI ---
HPI - URI/Sore Throat General: Chief Complaint: Upper Respiratory Infection Stated Complaint: Dr Goodson Spitting up blood coughing Time Seen by Provider: 03/26/25 10:55 History of Present Illness: 75-year-old female presents emergency room complaining of intermittent hemoptysis. She has had minimally productive cough but at times will have blood-tinged sputum. No shortness of breath no chest pain. She has not had any recent fever sweats or chills. She is complaining of a lump in her left forearm as well. Associated symptoms: Deny abdominal pain, chills, chest pain or fever(s) Related Data Home Medications ?Medication ?Instructions ?Recorded ?Confirmed biotin 10 mg tablet 10 mg PO DAILY 06/29/22 03/05/25 aspirin 81 mg tablet,delayed 81 mg PO DAILY 12/07/23 03/05/25 release (Adult Aspirin Regimen) Previous Rx's ?Medication ?Instructions ?Recorded levothyroxine 125 mcg tablet 125 mcg PO DAILY #90 tabs 02/10/25 varicella-zoster glycoE [id number] 0.5 ml IM .q monthly #2 ea 02/10/25 adj(PF) 50 mcg/0.5 mL IM susp, kit (Shingrix (PF)) doxycycline hyclate 100 mg capsule 100 mg PO BID 10 days #20 caps 03/26/25 Allergies Allergy/AdvReac Type Severity Reaction Status Date / Time paclitaxel (From Taxol) Allergy Severe low bp, Verified 03/05/25 10:00 loc, severe allergic reaction codeine Allergy Intermediate sick Verified 03/05/25 10:00 penicillin G Allergy ALGY-Hives Verified 03/05/25 10:00 Review of Systems Const: Denies: fever(s) or chills Card: Denies: chest pain Resp: Denies: dyspnea GI: Denies: abdominal pain : Denies: dysuria, urinary frequency or urinary urgency Musc: Denies: neck pain or back pain Skin/Breast: Denies: rash PFSH ED PFSH: Medical History History of uterine cancer History of stroke Alpha-galactosidase A deficiency History of [place] spotted fever Hx of radioactive iodine thyroid ablation PMB (postmenopausal bleeding) Graves disease Depression Surgical History History of hysterectomy History of appendectomy Family History Father Cancer brain Brother Graves disease Denies family history of Diabetes CAD (coronary artery disease) Clotting disorder Hyperlipidemia Chronic kidney disease (CKD) Bleeding disorder Hypertension Stroke Social History Smoking and tobacco/nicotine status: never used tobacco/nicotine Physical Exam Const: COMMON NORMALS: no acute distress GENERAL APPEARANCE: cooperative and comfortable ORIENTATION/CONSCIOUSNESS: Yes awake, Yes oriented to person, Yes oriented to place and Yes oriented to time HENMT: COMMON NORMALS: normocephalic, atraumatic and hearing grossly normal bilaterally HEAD & SCALP: normocephalic and atraumatic Resp: COMMON NORMALS: normal respiratory effort, No retractions, No use of accessory muscles and clear to auscultation bilaterally AUSCULTATION: clear to auscultation bilaterally Cardio: COMMON NORMALS: regular rate, regular rhythm and No murmurs present (Cardio) RATE: regular rate RHYTHM: regular rhythm GI: COMMON NORMALS: Soft to palpation and No hepatosplenomegaly present AUSCULTATION: Yes normoactive bowel sounds PALPATION: Yes Soft to palpation, No Tenderness to palpation present (GI), No Guarding due to palpation present (GI) and Yes No hepatosplenomegaly present Extremity: COMMON NORMALS: normal to inspection, capillary refill normal, no clubbing, cyanosis or edema, no calf tenderness and no pedal edema OTHER: Left forearm firm nodule feels like a lipoma. No fluctuance no redness no spiculations no induration. Neuro: SENSORIUM/ORIENTATION: Yes oriented to person, Yes oriented to place and Yes oriented to time Skin: COMMON NORMALS: no rashes or lesions noted GENERAL SKIN EXAM: no rashes or lesions noted Course Vital Signs: Vital signs: Vital Signs Temperature 98.0 F 03/26/25 11:16 Pulse Rate 74 03/26/25 16:02 Respiratory Rate 16 03/26/25 16:02 Blood Pressure 133/71 03/26/25 16:02 Pulse Oximetry 96 03/26/25 16:02 Oxygen Delivery Me thod Room Air 03/26/25 11:16 MDM - URI/Sore Throat Medical Decision Making CTA of the chest chest shows spiculated lesions in the left lower lobe in the right upper lobe. There is some hilar lymphadenopathy as well. Will refer her to pulmonology clinic for further evaluation and biopsy. Reviewed findings with the patient. Medical Records I reviewed the patient's medical records. Lab Data I reviewed the patient's lab results. 03/26/25 11:36 03/26/25 11:36 Radiology Impressions Chest X-Ray 03/26/25 10:56 IMPRESSION: 1. Infiltrates in the RIGHT upper lobe and LEFT lower lobe. This could represent chronic change or pneumonia. Chest CTA 03/26/25 13:31 IMPRESSION: 1. No evidence of pulmonary embolus. 2. Large spiculated mass RIGHT upper lobe suspicious for neoplasm. Recommend pulmonary consultation. 3. Additional large spiculated mass in the LEFT lower lobe abutting the diaphragm also suspicious for neoplasm or metastatic disease. 4. RIGHT hilar lymphadenopathy. Laboratory Results WBC 5.35 10^3/uL (3.29-11.43) 03/26/25 11:36 RBC 4.22 10^6/uL (3.85-5.65) 03/26/25 11:36 Hgb 13.00 g/dL (11.27-16.99) 03/26/25 11:36 Hct 40.4 % (36-47) 03/26/25 11:36 MCV 95.7 fl (85-98) 03/26/25 11:36 MCH 30.8 pg (27-33) 03/26/25 11:36 MCHC 32.2 g/dL (30-55) 03/26/25 11:36 RDW 13.9 % (12.1-15.1) 03/26/25 11:36 Plt Count 250 10^3/cmm (157-399) 03/26/25 11:36 MPV 9.6 fL (7.4-10.4) 03/26/25 11:36 Neut % (Auto) 54.9 % 03/26/25 11:36 Lymph % (Auto) 30.5 % 03/26/25 11:36 Curry % (Auto) 10.8 % 03/26/25 11:36 Eos % (Auto) 2.8 % 03/26/25 11:36 Baso % (Auto) 0.6 % 03/26/25 11:36 Neut # (Auto) 2.94 10^3/uL (1.8-7.7) 03/26/25 11:36 Lymph # (Auto) 1.6 10^3/uL (0.8-4.8) 03/26/25 11:36 Curry # (Auto) 0.6 10^3/uL (0.2-0.9) 03/26/25 11:36 Eos # (Auto) 0.2 10^3/uL (0.0-0.8) 03/26/25 11:36 Baso # (Auto) 0.0 10^3/uL (0.0-0.1) 03/26/25 11:36 Nucleated RBC % (auto) 0 % 03/26/25 11:36 Nucleated RBCs # 0.0 /100WBC 03/26/25 11:36 Sodium 142 mmol/L (136-145) 03/26/25 11:36 Potassium 4.3 mmol/L (3.5-5.1) 03/26/25 11:36 Chloride 105 mmol/L (98-107) 03/26/25 11:36 Carbon Dioxide 27 mmol/L (22-29) 03/26/25 11:36 Anion Gap 14.3 (5-19) 03/26/25 11:36 BUN 18 mg/dL (8-23) 03/26/25 11:36 Creatinine 1.0 mg/dL (0.5-0.9) H 03/26/25 11:36 GFR Calculation Not Reportable 03/26/25 11:36 Glucose 107 mg/dL (65-115) 03/26/25 11:36 Calculated Osmolality 296 mOsm/kg (285-295) H 03/26/25 11:36 Calcium 9.6 mg/dL (8.5-10.5) 03/26/25 11:36 Total Bilirubin 0.3 mg/dL (0.15-1.2) 03/26/25 11:36 AST 19 U/L (0-32) 03/26/25 11:36 ALT 17 U/L (0-33) 03/26/25 11:36 Alkaline Phosphatase 144 U/L (35-105) H 03/26/25 11:36 Total Protein 7.7 g/dL (6.6-8.7) 03/26/25 11:36 Albumin 4.0 g/dL (3.5-5.2) 03/26/25 11:36 Globulin 3.7 g/dL (1.3-4.6) 03/26/25 11:36 All radiology interpretation(s) finalized by discharge Discharge Plan Discharge Patient Disposition: Home Clinical Impression: Mass of left lung, Mass of right lung Condition: Stable Prescriptions: New doxycycline hyclate 100 mg capsule 100 mg PO BID 10 Days Qty: 20 0RF No Action biotin 10 mg tablet 10 mg PO DAILY aspirin [Adult Aspirin Regimen] 81 mg tablet,delayed release (DR/EC) 81 mg PO DAILY Shingrix (PF) 50 mcg/0.5 mL suspension for reconstitution 0.5 ml IM .q monthly Qty: 2 0RF Rx Instructions: Needs shingles vaccines x 2 doses one month apart. levothyroxine 125 mcg tablet 125 mcg PO DAILY Qty: 90 3RF lidocaine-epinephrine (PF) 1 %-1:100,000 solution 1 ml SUBCUT ONCE Qty: 3 0RF Discharge Orders: Discharge ED (Routine); Ordered 03/26/25 Ordered By: Felix Encinas Referrals: Malachi Lowry DO [Primary Care Provider, Family Practice] Patient Instructions: Opioid Safety, Pain Management, Patient Portal & Kelly Instructions Activity Restrictions/Additional Instructions: [facility]. It is very important that you follow up as instructed or that you return to the Emergency Department should you have concerns or if your condition changes or worsens in any way. Emergency department visits are focused on emergent conditions, in some cases you may require further evaluation on an outpatient basis. You were seen in the emergency room with a complaint of coughing up blood on the CT you were noted to have 2 masses in the lungs 1 in the right upper lobe is 2.6 x 2.7 cm. There is a second mass in the left lower lobe that is 3.1 x 2.5 cm. Case management will make arrangements for you to follow-up with the interventional industrial tractor driver at [facility] so that these can be further evaluated and biopsied to establish a diagnosis. (Please note that included in your discharge packet is information concerning opioid safety and pain management. This information is given to all patients were discharged from the ER regardless of their discharge diagnosis or the medicines they usually take or are prescribed.) Print Language: Argentine Coding Level of Care Code ED Organ Builder for Gaby Goncalves
--- NOTE | 2025-03-26 13:31 | CT_ITS ---
WS: [id number] CTA OF THE CHEST WITH PULMONARY EMBOLISM PROTOCOL TECHNIQUE: High-resolution contrast enhanced CTA of the chest with coronal and sagittal reformatted images with pulmonary embolism protocol. MIP images are also reviewed. CLINICAL INFORMATION: hempoptysis COMPARISON: 04/26/2023 DLP: 455.[address] scans at [facility] use at least one of these dose optimization techniques: automated exposure control; mA and/or kV adjustment per patient size (includes targeted exams where dose is matched to clinical indication); or iterative reconstruction. FINDINGS: New large spiculated mass in the RIGHT upper lobe with surrounding irregular margins. Findings suspicious for neoplasm. Mass measures approximately 2.6 x 2.7 cm. Associated mild pleural thickening. Recommend pulmonology consultation. Small nodule LEFT upper lobe anteriorly measuring 9 mm abutting the pleura and heart border. RIGHT hilar lymphadenopathy measuring 1.6 cm. Additional large spiculated mass LEFT lower lobe posterior medially abutting the diaphragm also suspicious for neoplasm or metastatic disease measuring 3.1 x 2.5 cm. Small nodule LEFT upper lobe along the fissure measuring 3.7 mm. Normal caliber thoracic aorta. Aortic calcification. Coronary calcification. Adrenal glands are normal. Hepatomegaly. Small esophageal hiatal hernia. Vascular calcification. Moderate thoracic kyphosis. Ankylosis thoracic spine. CT/CT angio chest PE protcl [id number] IMPRESSION: 1. No evidence of pulmonary embolus. 2. Large spiculated mass RIGHT upper lobe suspicious for neoplasm. Recommend p ulmonary consultation. 3. Additional large spiculated mass in the LEFT lower lobe abutting the diaphr agm also suspicious for neoplasm or metastatic disease. 4. RIGHT hilar lymphadenopathy.
[2025-03-26] MEDS: iohexol 350 mg/mL 500 mL Btl (per mL) IV (14:32)
[2025-03-26 16:02] VITALS: BP 133/71; PULSE 74; RESP 16; O2SAT 96
--- NOTE | 2025-03-30 07:19 | DCPLANNER ---
messaged pulmonology for er f/u
== END 2025-03-26 16:03 | disposition home or self-care (01) ==
PROVIDERS: Emergency Provider Family Medicine; PCP Family Medicine
DX: R91.8 Other nonspecific abnormal finding of lung field (principal); Z79.82 Long term (current) use of aspirin; Z86.73 Personal history of transient ischemic attack (TIA), and cerebral infarction without residual deficits; Z85.42 Personal history of malignant neoplasm of other parts of uterus
CPT/HCPCS: 36415; 71045; 71275; 80053; 85025; 93005; 99285